=== PATIENT | female | born 1985 | race American Indian/Alaskan Native ===

== ENCOUNTER 2020-07-07 12:41 | Outpatient (CLI) | payer MEDICAID ==
[2020-07-07 14:53] VITALS: BP 113/80
--- NOTE | 2020-07-07 14:58 | Ultrasound Report ---
US OB limited INDICATION: Amniotic fluid index. TECHNIQUE: Transabdominal. COMPARISON: None available. FINDINGS: There is a single intrauterine . Heart Rate: 149 beats per minute. Position: cephalic. Amniotic Fluid Volume: normal Amniotic Fluid Index (ALISIA) in cm (if calculated): 12.4. IMPRESSION: 1. Amniotic fluid is normal. Signer Name: Eugenio Chambers MD Signed: 07/07/2020 2:53 PM Workstation Name: [id number]
[2020-07-07] MEDS ORDERED: LACTATED RINGERS 500 ML IV ONE (15:14)
== END 2020-07-07 16:02 | disposition home or self-care (01) ==
LOC: TRG 12:41 → APU 12:42 → TRG 16:02
PROVIDERS: ATTEND Obstetrics & Gynecology
DX: O42.912 Preterm premature rupture of membranes, unspecified as to length of time between rupture and onset of labor, second trimester (principal); Z3A.27 27 weeks gestation of pregnancy
CPT/HCPCS: 59025; 76815

== ENCOUNTER 2020-08-19 11:23 | Outpatient (CLI) | payer MEDICAID ==
[2020-08-19] MEDS ORDERED: LACTATED RINGERS 1,000 ML IV SCH (11:45)
[2020-08-19] MEDS ORDERED: TERBUTALINE 1 MG/1 ML INJ SUB-Q SCH (12:00)
[2020-08-19 12:25] LABS: Bacteria,Urine 1+ /HPF (Negative); Bilirubin,Urine NEG (Negative); Blood,Urine NEG (Negative); Color,Urine Yellow (Yellow); Protein,Urine <15 mg/dL mg/dL (Negative); Urobilinogen,Urine < 2.0 mg/dL (<2.0)
--- NOTE | 2020-08-19 14:03 | Vascular Lab Report ---
DUPLEX DOPPLER LOWER EXTREMITY VEINS, BILATERAL INDICATION / CLINICAL INFORMATION: leg cramps. TECHNIQUE: Duplex doppler imaging was performed through the veins of both lower extremities using venous erna jennifer and other maneuvers. COMPARISON: None available. FINDINGS: RIGHT COMMON FEMORAL VEIN: Negative. RIGHT FEMORAL VEIN: Negative. RIGHT POPLITEAL VEIN: Negative. RIGHT CALF VEINS: Negative. LEFT COMMON FEMORAL VEIN: Negative. LEFT FEMORAL VEIN: Negative. LEFT POPLITEAL VEIN: Negative. LEFT CALF VEINS: Negative. ADDITIONAL FINDINGS: None. IMPRESSION: 1. No sonographic evidence for DVT in either lower extremity. Signer Name: Marquise Cunha MD Signed: 08/19/2020 1:59 PM Workstation Name: [id number]
[2020-08-19 14:46] VITALS: BP 123/81
== END 2020-08-19 16:13 | disposition home or self-care (01) ==
LOC: TRG 11:23 → APU 11:25 → TRG 16:13
PROVIDERS: ATTEND Obstetrics & Gynecology
DX: O26.893 Other specified pregnancy related conditions, third trimester (principal); R10.9 Unspecified abdominal pain; R25.2 Cramp and spasm; O47.03 False labor before 37 completed weeks of gestation, third trimester; Z3A.33 33 weeks gestation of pregnancy
CPT/HCPCS: 59025; 81001; 93970; 96360; 96361; 96372; J3105; J7120

== ENCOUNTER 2020-08-24 17:04 | Outpatient (CLI) | payer MEDICAID ==
[2020-08-24] MEDS ORDERED: D5W/LACTATED RINGERS 1,000 ML IV SCH (19:00)
[2020-08-24 19:07] LABS: Bilirubin,Urine NEG (Negative); Blood,Urine NEG (Negative); Color,Urine Yellow (Yellow); Protein,Urine <15 mg/dL mg/dL (Negative); Urobilinogen,Urine < 2.0 mg/dL (<2.0); WBC,Urine < 1.0 /HPF (0.0-6.0)
--- NOTE | 2020-08-24 19:27 | Event Note ---
Date: 08/24/20 Complains of Nausea, back pain, intermittent regular contractions last pm, diarrhea and dizziness. Symptoms started last night. No bleeding, no leaking. +FM. Able to tolerate po just has nausea. Currently taking Macrobid for UTI. Afeb, VSS, Resting in bed, no distress Cervix: 0/0/-3 FHT's Cat 1 no UC's notes Plan: IVF hydration, CMP, CBC, UA, Tylenol for back. further POC after labs reviewed. She voiced understanding and agrees with POC. Lizy AMBROSE present during exam
[2020-08-24 19:47] LABS: Hematocrit 33.3 % (30.3-42.9); Hemoglobin 11.3 gm/dl (10.1-14.3); Mean Corpuscular HGB Conc 34 % (30-34); Mean Corpuscular Volume 79 fl (79-97); Platelet Count 190 K/mm3 (140-440); Red Cell Distribution Width 15.4 % (13.2-15.2)
[2020-08-24 20:11] LABS: Alanine Aminotransferase 7 units/L (7-56); Albumin 3.5 g/dL (3.9-5); Blood Urea Nitrogen 6 mg/dL (7-17); Calcium 9.5 mg/dL (8.4-10.2); Hemolysis Index 2
[2020-08-24 20:17] LABS: BUN/Creatinine Ratio 12
[2020-08-24] MEDS ORDERED: ACETAMINOPHEN 500 MG TAB PO ONE (20:18)
[2020-08-24 21:01] VITALS: BP 111/70
[2020-08-24] MEDS ORDERED: LACTATED RINGERS 500 ML IV ONE (23:00)
== END 2020-08-24 22:40 | disposition home or self-care (01) ==
LOC: TRG 17:04 → APU 17:09 → TRG 22:40
PROVIDERS: ATTEND Obstetrics & Gynecology
DX: O62.9 Abnormality of forces of labor, unspecified (principal); O26.893 Other specified pregnancy related conditions, third trimester; R51.9 Headache, unspecified; R19.7 Diarrhea, unspecified; R11.0 Nausea; O23.43 Unspecified infection of urinary tract in pregnancy, third trimester; Z3A.33 33 weeks gestation of pregnancy
CPT/HCPCS: 36415; 59025; 80053; 81001; 82150; 83690; 85027; 96360; 96361; J7121

== ENCOUNTER 2020-09-15 15:51 | Outpatient (CLI) | payer MEDICAID ==
--- NOTE | 2020-09-15 16:27 | Event Note ---
Date: 09/15/20 pt arrived to triage with c/o burning in her chest when she has ctx, pt states ctx are irregular. She denies hx htn or elevated b/p in . b/p upon admission 137/90, repeated in semi-fowlers on right arm with proper fitting cuff 140/104. SVE 4.5/50/-3. Plans for pre-e labs and monitoring, will re-eval cervix in 1 hour after labs have resulted.
[2020-09-15 16:58] LABS: Hematocrit 34.7 % (30.3-42.9); Hemoglobin 11.3 gm/dl (10.1-14.3); Mean Corpuscular HGB Conc 33 % (30-34); Mean Corpuscular Volume 79 fl (79-97); Platelet Count 173 K/mm3 (140-440); Red Blood Count 4.42 M/mm3 (3.65-5.03); Red Cell Distribution Width 15.8 % (13.2-15.2)
[2020-09-15 17:03] LABS: Bilirubin,Urine NEG (Negative); Blood,Urine NEG (Negative); Color,Urine Straw (Yellow); Mucus,Urine FEW /HPF; Protein,Urine <15 mg/dL mg/dL (Negative); Urobilinogen,Urine < 2.0 mg/dL (<2.0); WBC,Urine < 1.0 /HPF (0.0-6.0)
[2020-09-15 17:15] LABS: Alanine Aminotransferase 7 units/L (7-56); Uric Acid 4.9 mg/dL (3.5-7.6)
--- NOTE | 2020-09-15 17:53 | Event Note ---
Date: 09/15/20 patient reports ctx are unchanged in intensity, ctx are less frequent now. SVE unchanged. Patient states she does not feel like she is in labor. b/p have tended down and labs are normal. pt denies s/s of pre-e. She has appointment tomorrow in [facility] office. Advised to keep appointment and call/return to triage for any signs of labor. Pt verbalizes understanding.
[2020-09-15 18:45] VITALS: BP 126/76
== END 2020-09-15 17:45 | disposition home or self-care (01) ==
LOC: TRG 15:51 → APU 15:54 → TRG 17:45
PROVIDERS: ATTEND Obstetrics & Gynecology
DX: Z34.93 Encounter for supervision of normal pregnancy, unspecified, third trimester (principal); Z3A.37 37 weeks gestation of pregnancy
CPT/HCPCS: 36415; 59025; 81001; 82565; 83615; 84450; 84460; 84550; 85027; 86592; 86850; 86900; 86901